=== PATIENT | female | born 1970 | race Caucasian/White ===

== ENCOUNTER → 2018-03-08 | Outpatient (CLI) | payer BC ==
[~2018-03-08] MED LIST: LISI-362 PO
--- NOTE | 2018-03-08 17:18 | RADIOLOGY IMAGING REPORT ---
[place] [facility] [place] NAME: Acacia Leyva : 1970 MR: [id number] V: [id number] EXAM DATE: ORDERING PHYSICIAN: ZEE DELANEY TECHNOLOGIST: Location: [facility] [place] Patient: Acacia Leyva : 1970 Visit/Account:[id number] Date of Sevice: 03/08/2018 TRANSVAGINAL NON-OB EXAMINATION: Transvaginal pelvic ultrasound with duplex Doppler evaluation HISTORY: Irregular cycle; LMP 02/22/2018 COMPARISON: None. FINDINGS: Uterus: Uterus measures 9 x 4.5 x 6 cm Myometrium: negative Endometrium: 8.4 mm. Homogenous. No endometrial mass or fluid. Cervix: negative Ovaries: Right ovary measures 2.8 x 1.7 x 1.5 cm in size. Left ovary measures 2.3 x 1.9 x 1.5 cm. Blood flow is documented in each ovary by Doppler ultrasound. Adnexa: negative Free pelvic fluid: none IMPRESSION: Unremarkable pelvic ultrasound. Report Dictated By: James Castañeda MD at 03/08/2018 5:11 PM Report E-Signed By: James Castañeda MD at 03/08/2018 5:16 PM [id number]
== END ==
LOC: US 03:28
PROVIDERS: ATTEND Physician Assistant
DX: N92.1 Excessive and frequent menstruation with irregular cycle (principal)
CPT/HCPCS: 76830